=== PATIENT | male | born 1980 | race Two or more races ===

== ENCOUNTER 2023-12-21 09:39 | Outpatient (CLI) | payer OTHER | END 2023-12-21 09:50 | disposition home or self-care (01) | LOC: SONOGRAMA 09:39 | PROVIDERS: ATTEND Internal Medicine Hematology & Oncology | DX: E04.2 Nontoxic multinodular goiter (principal); D51.3 Other dietary vitamin B12 deficiency anemia; F20.0 Paranoid schizophrenia; E03.8 Other specified hypothyroidism ==

== ENCOUNTER 2024-02-29 07:54 | Outpatient (CLI) | payer OTHER ==
[2024-02-29 09:55] LABS: HEMATOCRIT 50.9 % (39.0-48.0); HEMOGLOBIN 16.9 g/dL (13-16.00); MEAN CELL VOLUME 90.5 fL (80.0-100.00); MEAN CORPUSCULAR HGB CONC 33.2 g/dl (32.0-36.0); PLATELET COUNT 186 K/uL (150-450); RED BLOOD COUNT 5.63 M/uL (4.00-6.00); RED CELL DISTRIBUTION WIDTH 13.8 % (11.5-14.5)
[2024-02-29 10:13] LABS: % SATURACION 29.1 % (20-50); ALBUMIN 3.9 gm/dL (3.4-5.0); BILIRUBIN TOTAL 0.59 mg/dL (0.3-1.2); FERRITIN 115.3 NG/ML (26-388); GFR 81.55; GLOBULINA 3.5 G/DL (2.4-3.5); POTASSIUM 4.2 mEq/L (3.5-5.1); T4 FREE 1.1 NG/ML (0.76-1.46); TOTAL PROTEIN 7.4 gm/dL (6.4-8.2); TSH 1.04 uIU/mL (0.358-3.74)
[2024-02-29 10:24] LABS: FOLIC ACID 13.67 ng/ml (4.78-20)
[2024-02-29 12:59] LABS: MANUAL PLATELET COUNT 224
[2024-02-29 13:00] LABS: PLATELET ESTIMATE NORMAL (NORMAL)
[2024-03-01 09:06] LABS: TRANSFERIN 255 mg/dL (177-329)
[2024-03-01 11:10] LABS: ANTI THYROID PEROXIDASE < 9 IU/mL (0-34)
[2024-03-05 15:04] LABS: PARIETAL CELL ANTIBODIES 4.3 Units (0.0-20.0)
== END 2024-02-29 07:55 | disposition home or self-care (01) ==
LOC: LAB 07:54
PROVIDERS: ATTEND Internal Medicine Hematology & Oncology
DX: D50.8 Other iron deficiency anemias (principal); R79.9 Abnormal finding of blood chemistry, unspecified; I10 Essential (primary) hypertension; R74.02 Elevation of levels of lactic acid dehydrogenase [LDH]; D51.0 Vitamin B12 deficiency anemia due to intrinsic factor deficiency; E03.8 Other specified hypothyroidism; E06.3 Autoimmune thyroiditis; D51.3 Other dietary vitamin B12 deficiency anemia; F20.0 Paranoid schizophrenia

== ENCOUNTER 2024-09-06 07:22 | Outpatient (CLI) | payer OTHER ==
[2024-09-06 09:05] LABS: BASO % 1.1 % (0.1-1.2); EOS # 0.31 (0.04-0.54); EOS % 5.6 % (0.7-7.0); HEMATOCRIT 46.8 % (40.1-51.0); HEMOGLOBIN 16.2 g/dL (13.7-17.5); LYMPH # 1.79 (1.18-3.74); LYMPH % 32.5 % (19.3-53.1); MEAN CORPUSCULAR HEMOGLOBIN 29.3 pg (25.6-32.2); MONO # 0.35 (0.24-0.82); MONO % 6.4 % (4.7-12.5); NEUT # 2.99 (1.56-6.13); NEUT % 54.2 % (34.0-71.1); PLATELET COUNT 178 K/uL (163-369); RED BLOOD COUNT 5.52 M/uL (4.63-6.08)
[2024-09-06 10:26] LABS: % SATURACION 18.4 % (20-50); ALBUMIN 3.7 gm/dL (3.4-5.0); BILIRUBIN TOTAL 0.38 mg/dL (0.3-1.2); CALCIUM 8.6 mg/dL (8.5-10.1); CREATININE SERUM 1.01 mg/dL (0.70-1.30); FERRITIN 129.2 NG/ML (26-388); GFR 80.62; GLOBULINA 2.9 G/DL (2.4-3.5); POTASSIUM 4.2 mEq/L (3.5-5.1); PROSTATIC SPECIFIC ANTIGEN 0.45 NG/ML (0.010-4.00); TOTAL PROTEIN 6.6 gm/dL (6.4-8.2)
[2024-09-07 10:56] LABS: MANUAL PLATELET COUNT 308
[2024-09-08 14:19] LABS: FOLIC ACID 16.65 ng/ml (4.78-20)
== END 2024-09-06 07:26 | disposition home or self-care (01) ==
LOC: LAB 07:22
PROVIDERS: ATTEND Internal Medicine Hematology & Oncology
DX: D51.3 Other dietary vitamin B12 deficiency anemia (principal); D75.1 Secondary polycythemia; F20.0 Paranoid schizophrenia; D50.8 Other iron deficiency anemias; R79.9 Abnormal finding of blood chemistry, unspecified; R74.02 Elevation of levels of lactic acid dehydrogenase [LDH]; I10 Essential (primary) hypertension; K76.89 Other specified diseases of liver; D63.8 Anemia in other chronic diseases classified elsewhere; D55.0 Anemia due to glucose-6-phosphate dehydrogenase [G6PD] deficiency; R97.0 Elevated carcinoembryonic antigen [CEA]